=== PATIENT | female | born 1945 | race Caucasian/White ===

== ENCOUNTER 2017-04-08 09:41 | Day surgery (SDC) | payer MEDICARE, OTHER ==
[~2017-04-08 09:41] MED LIST: RINGERS SOLUTION,LACTATED 1,000 ML IV PRN
--- OUTSIDE RECORDS SUMMARY | 2017-04-08 09:45 | XMS REPORT | Continuity of Care Document ---
:1945 Author Organization [facility] ([facility]) Address [place] [address] Phone [phone] Care Team Providers Name Role Phone Toy Encinas Primary Care Provider [phone] Source Comments This disclosure is being made pursuant to the Care Everywhere program, applicable federal and state laws, and may not contain all informaitonavailable regarding this patient.[facility] ([facility]) Active Allergies and Adverse Reactions No Known Allergies Current Medications Prescription Sig. Disp. Refills Start Date End Date Status lisinopril (PRINIVIL) 40 mg take 40 mg by Active tablet mouth daily. hydrochlorothiazide take 25 mg by Active (HYDRODIURIL) 25 mg tablet mouth daily. fenofibrate (TRICOR) 145 mg take 145 mg by Active tablet mouth daily. INSULIN inject Active GLARGINE,HUM.REC.ANLOG subcutaneously. (LANTUS SC) glipiZIDE (GLUCOTROL XL) 10 take 10 mg by Active mg CR tablet mouth daily. metoprolol (TOPROL-XL) 200 mg take 200 mg by Active XL tablet mouth daily. ESOMEPRAZOLE MAG TRIHYDRATE take by mouth. Active (NEXIUM PO) multivitamin tablet take 1 Tab by Active mouth daily. GLUCOSAMINE SULFATE take by mouth. Active (GLUCOSAMINE PO) Active Problems Problem Noted Date Abnormal MRI, breast 07/10/2014 Most Recent Encounters Date Type Specialty Providers Description 03/17/2017 Lab Requisition Pathology [facility], [facility] Dx: Neoplasm of uncertain behavior of skin Social History Tobacco Use Types Packs/Day Years Used Date Former Smoker Cigarettes Smokeless Tobacco: Never Used Alcohol Use Drinks/Week oz/Week Comments No Last Filed Vital Signs Vital Sign Reading Time Taken Blood Pressure 160/73 06/29/2014 11:37 AM CDT Pulse 68 06/29/2014 11:37 AM CDT Temperature 36.6 C (97.9 F) 06/29/2014 11:37 AM CDT Respiratory Rate 16 06/29/2014 11:37 AM CDT Height 1.589 m (5' 2.56") 06/29/2014 11:37 AM CDT Weight 84.732 kg (186 lb 12.8 oz) 06/29/2014 11:37 AM CDT Body Mass Index 33.56 06/29/2014 11:37 AM CDT Oxygen Saturation 97% 06/29/2014 11:37 AM CDT Plan of Care Health Maintenance Due Date Last Done Comments Hepatitis B Vaccine (1 of 3 - Primary 1945 Series) Tdap Vaccine 1955 Td Vaccine 1962 Mammogram 1984 Colonoscopy 1994 Zoster Vaccine 2004 Osteoporosis Screening (DXA Bone Density) 2009 Pneumococcal Vaccine (1 of 2 - PCV13) 2009 Lipid Disorder Screening 06/14/2015 06/14/2010, 04/11/2010 Influenza Vaccine: Seasonal (Season Ended) 2017 Results from Last 3 Months DERMATOPATHOLOGY EXAM (03/13/2017 10:55 AM) Component Value Range Case Report Surgical Pathology Case: [id number] Authorizing Provider:[facility], [facility] Collected: 03/13/2017 10:55 AM Pathologist: Kailey Dupont MD Received:03/17/2017 10:55 AM Specimen:Skin, other, specify, abdomen Diagnosis Skin, abdomen, punch: Lentiginous junctional nevus. I have personally reviewed this case and edited the report as necessary. Clinical Information Tissue source/site: Skin punch/abdomen. Pertinent clinical history and findings: 0.6 cm brown speckled macule. Clinical differential diagnosis: Atypical nevus. Gross Description A.Received in formalin, in a container labeled Brown, Vera L, date of , and "abdomen", is a 0.6 cm in diameter x 0.8 cm in length dark brown punch biopsy.The specimen is inked, bisected and submitted entirely in A1. BNS/tkr Microscopic Description Sections show a lentiginous and nested proliferation of cytologically bland nevomelanocytes along the dermoepidermal junction. Margins appear uninvolved in the plane of sectioning. Performed by:Juvencio Khan MD, R4/rls Specimen Skin - Skin, other, specify
[2017-04-08] MEDS ORDERED: RINGERS SOLUTION,LACTATED 1,000 ML IV ONE (10:27)
[2017-04-08] MEDS ORDERED: RINGERS SOLUTION,LACTATED 1,000 ML IV PRN (11:30)
[2017-04-08 12:25] VITALS: BP 139/56
--- NOTE | 2017-04-08 16:13 | OR ---
Operative Report - Dictated Report Narrative: OPERATIVE REPORT DATE OF OPERATION: 04/08/2017 PREOPERATIVE DIAGNOSIS: No recent dedicated colon studies. Family history of colon cancer. Possible personal history of colon polyps POSTOPERATIVE DIAGNOSIS: Significant sigmoid diverticulosis OPERATION: Colonoscopy SURGEON: Yuliya White MD ANESTHESIA: NAM Amador CRNA INDICATIONS FOR PROCEDURE: The patient is a 71-year-old female referred by Dr. Escobar. The patient's sister had colon cancer at age 60 her mother had colon cancer at age 68. The patient has had previous colon exams and 2006, 2009, and 2012. She thinks polyps were removed on the first 2 exams (pathology unavailable), and there is a report of an area of inflammation that was biopsied in 2012. FINDINGS: Significant sigmoid diverticulosis otherwise normal colonoscopy to the cecum NARRATIVE OF PROCEDURE: The patient was identified in the holding area, and prior to the administration of anesthetic, a multidisciplinary timeout was observed. With the patient in the left lateral position and after the administration of intravenous sedation, the perineum was inspected. There was no evidence of pilonidal disease or skin breakdown. The external appearance of the anus was normal. Sphincter tone was good. The flexible fiberoptic colonoscope was inserted into the rectum which was insufflated with air. The rectal mucosa and submucosal vascular pattern appeared normal, the prep was seen to be complete. The scope was advanced through the sigmoid colon, which was very tortuous and contained numerous large non-impacted noninflamed diverticular openings. The scope was advanced up the descending colon, and around the splenic flexure where the triangular haustral architecture of the transverse colon was seen. The scope was advanced across the transverse colon, around the hepatic flexure to the cecum, where the confluence of tenia and the ileocecal valve were identified. The mucosa at this level appeared normal. The scope was then slowly withdrawn in a circular fashion so that all aspects of colonic mucosa were inspected. The colon was relatively normal in caliber. The sigmoid colon was quite tortuous with moderate to severe diverticulosis. The haustral architecture appeared well preserved throughout with no evidence of external compression. The mucosa and submucosal vascular pattern appeared normal, specifically there was no gross evidence to suggest colitis or inflammatory bowel disease and no AV malformations were seen. No polyps were encountered. The scope was gradually withdrawn to the level of the rectum. As much insufflated air as possible was removed. The scope was withdrawn from the patient and the procedure terminated. The patient tolerated the anesthetic and procedure well without complication and was transferred back to the ambulatory surgery area awake and in stable condition. The patient remained stable throughout a period of postoperative observation. She denied abdominal discomfort, was able to tolerate by mouth intake, and was up without assistance. I shared the operative findings with the patient and she was given copies of the photographs which appear in the medical record. She was discharged home with instructions not to engage in hazardous activity today , but may resume normal activity tomorrow, and advance diet as tolerated. She is to continue those medications as listed in the history and physical exam. RECOMMENDATION: Colon surveillance in 5 years Reviewed and electronically signed
== END 2017-04-08 09:42 | disposition home or self-care (01) ==
LOC: AMB 09:41
PROVIDERS: ATTEND Surgery
PROC: 0DJD8ZZ Inspection of Lower Intestinal Tract, Via Natural or Artificial Opening Endoscopic (ICD-10-PCS; principal; 2017-04-08 10:45)
DX: Z12.11 Encounter for screening for malignant neoplasm of colon (principal); K57.30 Diverticulosis of large intestine without perforation or abscess without bleeding; E11.9 Type 2 diabetes mellitus without complications; I10 Essential (primary) hypertension; E78.5 Hyperlipidemia, unspecified; K21.9 Gastro-esophageal reflux disease without esophagitis; Z80.0 Family history of malignant neoplasm of digestive organs; Z87.891 Personal history of nicotine dependence; Z68.35 Body mass index [BMI] 35.0-35.9, adult